=== PATIENT | male | born 1940 | race Caucasian/White ===

== ENCOUNTER 2020-05-28 11:31 | Inpatient (IN) | payer MEDICARE ==
[~2020-05-28] VITALS: Ht 182.9 cm; Wt 71.7 kg
[~2020-05-28 11:31] MED LIST: ASPIR 8181 MG PO; CADUET 10 MG-11 EACH PO; FLOMAX 0.4 MG0.4 MG PO; IBU800 MG PO; MULTIVITAMIN1 EACH PO; NORCO 5-325 TA1 EACH PO; PROPAFENONE HC150 MG PO; ZOFRAN4 MG PO
[2020-05-28 13:18] LABS: HEMOGLOBIN 13.5 gm/dl (14.0-17.5); RED BLOOD COUNT 4.14 M/UL (4.20-5.50); WHITE BLOOD COUNT 5.7 K/UL (4.5-11.0)
[2020-05-28 13:45] LABS: BUN/CREATININE RATIO 15 (0-10)
[2020-05-29 03:30] LABS: HEMOGLOBIN 12.9 gm/dl (14.0-17.5); RED BLOOD COUNT 4.04 M/UL (4.20-5.50); WHITE BLOOD COUNT 4.3 K/UL (4.5-11.0)
[2020-05-29] MEDS ORDERED: AMARYL2 MG PO (12:49)
[2020-05-29] MEDS ORDERED: GLUCOPHAGE 500500 MG PO (16:58)
[2020-05-29] MEDS ORDERED: VITAMIN C500 M4 PO (16:59)
[2020-05-30 04:04] LABS: HEMOGLOBIN 13.1 gm/dl (14.0-17.5); RED BLOOD COUNT 4.05 M/UL (4.20-5.50); WHITE BLOOD COUNT 3.6 K/UL (4.5-11.0)
[2020-05-31 06:25] LABS: HEMOGLOBIN 13.2 gm/dl (14.0-17.5); RED BLOOD COUNT 4.08 M/UL (4.20-5.50); WHITE BLOOD COUNT 3.1 K/UL (4.5-11.0)
[2020-05-31 06:46] LABS: BUN/CREATININE RATIO 17 (0-10)
--- NOTE | 2020-05-31 16:17 | NUR ---
was instructed by dr. fermin that it is ok to give a written list of medications to daughter of the patient
[2020-06-01 05:43] LABS: HEMOGLOBIN 13.7 gm/dl (14.0-17.5); RED BLOOD COUNT 4.3 M/UL (4.20-5.50)
[2020-06-01 05:44] LABS: WHITE BLOOD COUNT 5.3 K/UL (4.5-11.0)
[2020-06-01 06:08] LABS: BUN/CREATININE RATIO 14 (0-10)
[2020-06-01] MEDS ORDERED: ACETAMINOPHEN325 MG PO (18:23)
[2020-06-01] MEDS ORDERED: MEGACE 400400 MG/10 PO (18:23)
[2020-06-01] MEDS ORDERED: ACYCLOVIR SODI500 MG IV (18:23)
[2020-06-01] MEDS ORDERED: DOXY 100100 MG IV (18:23)
--- NOTE | 2020-06-01 18:25 | NUR ---
VANCOMYCIN STOPPED AFTER RUNNING APPROX [address] HARDWICK DISCONTINUING THIS MED. [facility] WILL NOT ALLOW ME TO CHART THIS ON ACTUAL EMAR.
[2020-06-01] MEDS ORDERED: MEROPENEM1 GM IV (19:43)
[2020-06-03 17:10] LABS: HEPARIN INDUCED PLATELET AB 0.058 OD (0.000-0.400)
== END 2020-06-01 23:20 | DRG 853 ==
LOC: ER1 11:31 → M/S 16:41 → CDU 16:41 → M/S 19:45
PROVIDERS: Internal Medicine; Surgery; ADMIT Internal Medicine
PROC: 0J9B0ZZ Drainage of Perineum Subcutaneous Tissue and Fascia, Open Approach (ICD-10-PCS; principal; 2020-05-29 09:30)
PROC: B24BZZ4 Ultrasonography of Heart with Aorta, Transesophageal (ICD-10-PCS; 2020-06-01)
DX: A41.9 Sepsis, unspecified organism (principal); G93.41 Metabolic encephalopathy; D61.811 Other drug-induced pancytopenia; M31.1 Thrombotic microangiopathy; L02.31 Cutaneous abscess of buttock; A86 Unspecified viral encephalitis; N17.9 Acute kidney failure, unspecified; L02.215 Cutaneous abscess of perineum; R65.20 Severe sepsis without septic shock; Z20.822 Contact with and (suspected) exposure to COVID-19; T36.8X5A Adverse effect of other systemic antibiotics, initial encounter; E78.5 Hyperlipidemia, unspecified; R27.0 Ataxia, unspecified; E11.42 Type 2 diabetes mellitus with diabetic polyneuropathy; F17.210 Nicotine dependence, cigarettes, uncomplicated; D64.9 Anemia, unspecified; I10 Essential (primary) hypertension; R29.6 Repeated falls; Z85.038 Personal history of other malignant neoplasm of large intestine; Z90.49 Acquired absence of other specified parts of digestive tract
CPT/HCPCS: ECHO; 36415; 36600; 70450; 70551; 71045; 71046; 73080; 80048; 80053; 80061; 80202; 81001; 82140; 82550; 82553; 82607; 82803; 82962; 83036; 83540; 83550; 83605; 83735; 83874; 84100; 84207; 84443; 84484; 85025; 85027; 85652; 86140; 86618; 86757; 87040; 87070; 87086; 87205; 87798; 92610; 93005; 93306; 93880; 94664; 97110-GP-CQ; 97116-GP-CQ; 97162; 97530-GP-CQ; 99285; A6212; J0133; J1650; J2185; J2704; J3010; J3370; J7030; J7040; J7070; J7120; Q9965; U0002